=== PATIENT | male | born 2000 ===

== ENCOUNTER 2018-01-18 22:57 | Emergency (ER) | payer SELFPAY ==
[2018-01-18] MEDS ORDERED: HYDROcodone/Acetaminophen 10/325 mg Tablet ONE (23:51)
[2018-01-19] MEDS ORDERED: Silver Sulfadiazine 1% Cream 50 GM JAR ONE (01:03)
== END 2018-01-19 02:09 | disposition home or self-care (01) ==
LOC: ERS 22:57
DX: T23.201A Burn of second degree of right hand, unspecified site, initial encounter (principal); T31.0 Burns involving less than 10% of body surface
CPT/HCPCS: 16020